=== PATIENT | male | born 1980 | race African-American/Black ===

== ENCOUNTER 2021-09-18 08:03 | Emergency (ER) | payer OTHER ==
--- OUTSIDE RECORDS SUMMARY | 2021-09-18 08:07 | XMS REPORT | Continuity of Care Document ---
:1980 Author Organization [facility] t Address [address] [place] [address] Care Team Providers Name Role Phone Angela RIVERO Attending Clinician Unavailable VINEET Attending Clinician Unavailable Leslie AMADO Attending Clinician Unavailable Payers Payer Name Policy Type Policy Number Effective Date Expiration Date S meche [employer] 2 [id number] 2019 00:00:00 Problems This patient has no known problems. Allergies, Adverse Reactions, Alerts This patient has no known allergies or adverse reactions. Medications This patient has no known medications. Procedures This patient has no known procedures. Encounters Start End Encounter Admission Attending Care Care Encounter Source Date/Time Date/Time Type Type Clinicians Facility Department ID 2021-09-20 2021-09-20 Outpatient TAMICA RIVERO [id number] [place] 08:15:00 08:15:00 OSVALDO florez 2021-08-08 2021-08-08 Outpatient TAMICA RIVERO [id number] [place] 10:00:00 10:00:00 OSVALDO florez 2021-06-07 2021-06-07 Outpatient [facility] [id number] [place] 00:00:00 00:00:[address] 2021-06-07 2021-06-07 Outpatient VINEET [facility] [id number] [place] 00:00:00 00:00:00 MASOUD [facility] [facility] 2021-05-05 2021-05-05 Outpatient TAMICA AMADO [id number] [place] 11:30:00 11:30:00 MELISSA florez 2018-05-13 2018-05-22 Outpatient [facility] [id number] [place] 00:00:00 00:00:00 [facility] 2017-05-13 2017-05-22 Outpatient [facility] [id number] [place] 00:00:00 00:00:00 [facility] Results Test Description Test Time Test Comments Results Result Comments Source XR Hand 2 Views 2019-01-18 Patient: WALKER, Left 07:19:29 ERIC HORTON Date/Time01/18/2019 07:04 CDTReason for ExamTraumaReportEXAM : Left hand series, 3 viewsLocation: [id number]: TraumaCOMPARISON: NoneDISCUSSION: Frontal, oblique, and lateral views of the left hand are submitted. No fracture, dislocation, or lytic or blastic lesions are identified. A 4 mm rounded metallic density BB or pellet is in the palmar soft tissues 3 to 4 mm volar to the mid second metacarpal diaphysis.IMPRESSION :4 mm metallic density BB/pellet in the soft tissues volar to the mid second metacarpal diaphysis. No acute bony abnormalities are identified. Final Dictated by: MD Galvan Brian PDictmarla DT/TM: 01/18/2019 7:17 amSigned by: MD Galvan Brian PSignmorenita (Electronic Signature): 01/18/2019 7:19 am
[2021-09-18] MEDS ORDERED: CYCLOBENZAPRINE 10 MG TAB ONE (09:30)
[2021-09-18] MEDS ORDERED: KETOROLAC 30 MG/ML INJ ONE (09:30)
[2021-09-18] MEDS ORDERED: LIDOCAINE 4% PATCH ONE (09:30)
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
[2021-09-18 11:36] VITALS: BP 141/91; TEMP 98.3; O2SAT 100
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
== END 2021-09-18 11:32 | disposition home or self-care (01) ==
LOC: ER 08:03
DX: M54.50 Low back pain, unspecified (principal); V43.52XA Car driver injured in collision with other type car in traffic accident, initial encounter; Y93.89 Activity, other specified; Y92.410 Unspecified street and highway as the place of occurrence of the external cause
CPT/HCPCS: 72100; 96372; 99283